=== PATIENT | male | born 1980 ===

== ENCOUNTER 2024-10-01 02:14 | Emergency (ER) | payer OTHER ==
[2024-10-01] MEDS: diphenhydrAMINE 25 MG Cap PO ONE (02:29)
[2024-10-01] MEDS: Metoclopramide 5 MG Tab PO ONE (02:29)
[2024-10-01] MEDS: Ketorolac 30 MG/ML SDV IM ONE (02:30)
== END 2024-10-01 03:40 | disposition home or self-care (01) ==
LOC: MW.ED 02:14
DX: R51.9 Headache, unspecified (principal); I10 Essential (primary) hypertension; E78.00 Pure hypercholesterolemia, unspecified; F17.210 Nicotine dependence, cigarettes, uncomplicated; Z86.16 Personal history of COVID-19; Z79.899 Other long term (current) drug therapy
CPT/HCPCS: 96372; 99283; A9270; J1885